=== PATIENT | female | born 1960 | race Caucasian/White ===

== ENCOUNTER 2019-12-19 10:33 | Emergency (ER) | payer BC ==
[~2019-12-19] VITALS: Ht 162.6 cm; Wt 56.7 kg
[~2019-12-19 10:33] MED LIST: CHLO500 PO; DIAZ10 PO; FAMO40 PO; GABA300 PO; IRON150C PO; NAPR500 PO; OXYACE10 PO; OXYACE5T PO; PROM25 PO; PROM25S PR; RXTRAM50 PO; TRAM50 PO
[2019-12-19] MEDS ORDERED: MYDAYIS ER 1212.5 MG PO (10:53)
[2019-12-19] MEDS ORDERED: AMLODIPINE BESYL5 MG PO (10:54)
[2019-12-19] MEDS ORDERED: EUTHYROX25 MC1 PO (10:55)
[2019-12-19] MEDS ORDERED: CARBIDOPA-LEVO1 EAC1 PO (10:56)
[2019-12-19] MEDS ORDERED: CHLORZOXAZONE750 MG PO (10:57)
[2019-12-19] MEDS ORDERED: GABAPENTIN600 MG PO (10:58)
[2019-12-19 11:42] LABS: BASOPHILS ABSOLUTE AUTO 0.05 K/mm3 (0.00-0.23); BASOPHILS PERCENT AUTO 1 % (0-2); EOSINOPHILS ABSOLUTE AUTO 0.14 K/mm3 (0.00-0.68); EOSINOPHILS PERCENT AUTO 4 % (0-6); Hematocrit 41.2 % (33.0-51.0); Hemoglobin 13.2 g/dL (11.5-16.0); IMMATURE GRAN ABSOLUTE AUTO 0.01 K/mm3 (0.00-0.10); IMMATURE GRAN PERCENT AUTO 0 % (0-1); LYMPHOCYTES ABSOLUTE AUTO 1.19 K/mm3 (0.84-5.20); LYMPHOCYTES PERCENT AUTO 30 % (21-46); MONOCYTES ABSOLUTE AUTO 0.35 K/mm3 (0.16-1.47); MONOCYTES PERCENT AUTO 9 % (4-13); Mean Corpuscular HGB 30.5 pg (26.0-34.0); Mean Corpuscular Volume 95 fL (80-100); Mean Platelet Volume 10.6 fL (9.1-12.4); NEUTROPHILS ABSOLUTE AUTO 2.17 K/mm3 (1.96-9.15); NEUTROPHILS PERCENT AUTO 55 % (41-73); Platelet Count 198 K/mm3 (150-400); RDW Coefficient Variation 12.3 % (11.7-14.2); RDW Standard Deviation 42.6 fL (35.1-46.3); Red Blood Cell Count 4.33 M/mm3 (3.80-5.20); White Blood Cell Count 3.91 K/mm3 (4.00-11.30)
[2019-12-19 11:49] LABS: Anion Gap 6 mmol/L (6-16); Blood Urea Nitrogen 27 mg/dL (8-24); CO2, Blood 28 mmol/L (21-32); Chloride, Blood 112 mmol/L (98-108); Creatinine, Blood 0.75 mg/dL (0.40-1.00); Glomerular Filtration Rate >60 (60-); Glucose, Blood 85 mg/dL (70-99); Potassium, Blood 3.9 mmol/L (3.5-5.5); Sodium, Blood 146 mmol/L (136-145)
[2019-12-19] MEDS ORDERED: Norco 5-325 Ta1 EACH PO (12:43)
== END 2019-12-19 13:01 | disposition home or self-care (01) ==
LOC: ER 10:33
PROVIDERS: Emergency Medicine
DX: M79.672 Pain in left foot (principal); G62.9 Polyneuropathy, unspecified; F32.9 Major depressive disorder, single episode, unspecified; F41.9 Anxiety disorder, unspecified; Z88.8 Allergy status to other drugs, medicaments and biological substances; Z79.899 Other long term (current) drug therapy
CPT/HCPCS: 36415; 73630; 80048; 85025; 96374; 99284-25; J3010

== ENCOUNTER → 2020-08-14 | Outpatient (CLI) | payer BC ==
[~2020-08-14] MED LIST changes: +AMLODIPINE BESYL5 MG PO; +CARBIDOPA-LEVO1 EAC1 PO; +CHLORZOXAZONE750 MG PO; +EUTHYROX25 MC1 PO; +GABAPENTIN600 MG PO; +MYDAYIS ER 1212.5 MG PO; +Norco 5-325 Ta1 EACH PO
[2020-08-19 15:10] LABS: HPV 16 Negative (Negative); HPV 18 Negative (Negative); HPV OTHER HR TYPES Negative (Negative)
== END | disposition home or self-care (01) ==
LOC: LAB SHORT 18:33 → LAB 18:33
PROVIDERS: Family Medicine
DX: Z01.419 Encounter for gynecological examination (general) (routine) without abnormal findings (principal)
CPT/HCPCS: 87624; G0123

== ENCOUNTER → 2021-07-25 | Outpatient (CLI) | payer SELFPAY | LOC: LAB SHORT 12:38 → LAB 12:38 | DX: N39.0 Urinary tract infection, site not specified (principal) | CPT/HCPCS: 87077; 87086; 87186 ==

== ENCOUNTER → 2021-09-14 | Outpatient (CLI) | payer BC | LOC: LAB SHORT 15:47 → LAB 15:47 | DX: R30.0 Dysuria (principal) | CPT/HCPCS: 87086 ==

== ENCOUNTER → 2021-10-13 | Outpatient (CLI) | payer BC | LOC: LAB SHORT 17:00 | DX: N39.0 Urinary tract infection, site not specified (principal) | CPT/HCPCS: 87086 ==

== ENCOUNTER → 2025-10-23 | Outpatient (CLI) | payer MEDICARE | LOC: LAB SHORT 17:25 → LAB 17:25 | DX: N39.0 Urinary tract infection, site not specified (principal) | CPT/HCPCS: 87086 ==